=== PATIENT | male | born 1990 | race Caucasian/White ===

== ENCOUNTER 2017-09-21 15:05 | Emergency (ER) | payer MEDICAID ==
[~2017-09-21] VITALS: Ht 177.8 cm; Wt 82.5 kg
[~2017-09-21 15:05] MED LIST: ALBU17AE26 IH; ALBU6.7H INH; ALBU8.5H8 IH; ALBU8HFA PO; AZIT250T PO; BENZ-16 PO; CYCL-1 PO; IBUP-1984 PO; IBUP-1986 PO; LEVA15HF4 IH; MONT10TA21 PO; OMEP-84 PO; ONDA4TAB6 PO; ONDA8TAB9 PO
[2017-09-21 16:12] VITALS: BP 116/69
== END 2017-09-21 15:35 | disposition home or self-care (01) ==
LOC: ER 15:06
DX: M25.561 Pain in right knee (principal); J45.909 Unspecified asthma, uncomplicated; G89.29 Other chronic pain; Z87.442 Personal history of urinary calculi; Z90.49 Acquired absence of other specified parts of digestive tract; Z79.899 Other long term (current) drug therapy; Z88.8 Allergy status to other drugs, medicaments and biological substances; Z56.0 Unemployment, unspecified; Z60.2 Problems related to living alone
CPT/HCPCS: 99282; A6449

== ENCOUNTER 2020-06-05 12:11 | Emergency (ER) | payer MEDICAID ==
[~2020-06-05] VITALS: Ht 177.8 cm; Wt 85.4 kg
[~2020-06-05 12:11] MED LIST changes: -ALBU6.7H INH; +ALBU6.7H9 INH
[2020-06-05 12:15] VITALS: BP 125/78
[2020-06-05] MEDS ORDERED: ALBU8HFA PO (12:29)
--- NOTE | 2020-06-05 12:56 | NUR ---
PT SEEN AND DC'D BY PROVIDER
== END 2020-06-05 12:50 | disposition home or self-care (01) ==
LOC: ER 12:11
DX: J45.909 Unspecified asthma, uncomplicated (principal); G89.29 Other chronic pain; F41.9 Anxiety disorder, unspecified; Z76.0 Encounter for issue of repeat prescription; Z60.2 Problems related to living alone; Z90.49 Acquired absence of other specified parts of digestive tract; Z56.0 Unemployment, unspecified; Z88.8 Allergy status to other drugs, medicaments and biological substances; Z79.899 Other long term (current) drug therapy
CPT/HCPCS: 99281

== ENCOUNTER 2021-08-25 12:10 | Emergency (ER) | payer MEDICAID ==
[~2021-08-25] VITALS: Ht 177.8 cm; Wt 90.9 kg
[~2021-08-25 12:10] MED LIST changes: +ALBU8.5H17 IH; -ALBU8.5H8 IH
[2021-08-25 12:24] VITALS: BP 130/79
[2021-08-25] MEDS ORDERED: ALBU6.7H9 INH (12:52)
== END 2021-08-25 12:59 | disposition home or self-care (01) ==
LOC: ER 12:11
DX: J45.901 Unspecified asthma with (acute) exacerbation (principal); G89.29 Other chronic pain; F41.9 Anxiety disorder, unspecified; Z76.0 Encounter for issue of repeat prescription; Z87.442 Personal history of urinary calculi; Z90.89 Acquired absence of other organs; Z72.89 Other problems related to lifestyle; Z60.2 Problems related to living alone; Z56.0 Unemployment, unspecified; Z88.8 Allergy status to other drugs, medicaments and biological substances; Z79.2 Long term (current) use of antibiotics; Z79.899 Other long term (current) drug therapy
CPT/HCPCS: 99281

== ENCOUNTER 2022-01-23 07:25 | Emergency (ER) | payer MEDICAID ==
[~2022-01-23] VITALS: Ht 177.8 cm; Wt 86.4 kg
[2022-01-23 08:11] VITALS: BP 141/80
--- NOTE | 2022-01-23 08:30 | NUR ---
REPORTED INJURY AND BRUISING BEHIND PTS L EAR TO DR. CRAWFORD, RECEIVED VO FOR HEAD CT.
== END 2022-01-23 11:25 | disposition left against medical advice (07) ==
LOC: ER 07:25
DX: R51.9 Headache, unspecified (principal); Z53.21 Procedure and treatment not carried out due to patient leaving prior to being seen by health care provider
CPT/HCPCS: 70450; 70486

== ENCOUNTER 2022-02-02 06:50 | Emergency (ER) | payer MEDICAID ==
[~2022-02-02] VITALS: Ht 177.8 cm; Wt 88.6 kg
[2022-02-02 06:56] VITALS: BP 135/86
[2022-02-02] MEDS ORDERED: OMEP40CA21 PO (07:19)
[2022-02-02] MEDS ORDERED: SUCR1TAB PO (07:19)
== END 2022-02-02 07:34 | disposition home or self-care (01) ==
LOC: ER 06:50
DX: R10.13 Epigastric pain (principal); R10.12 Left upper quadrant pain; G89.29 Other chronic pain; F41.9 Anxiety disorder, unspecified; J45.909 Unspecified asthma, uncomplicated; Z87.442 Personal history of urinary calculi; Z72.89 Other problems related to lifestyle; Z90.49 Acquired absence of other specified parts of digestive tract; Z60.2 Problems related to living alone; Z56.0 Unemployment, unspecified; Z88.8 Allergy status to other drugs, medicaments and biological substances; Z79.899 Other long term (current) drug therapy
CPT/HCPCS: 99283

== ENCOUNTER 2022-02-05 07:00 | Emergency (ER) | payer MEDICAID ==
[~2022-02-05] VITALS: Ht 177.8 cm; Wt 88.6 kg
[~2022-02-05 07:00] MED LIST changes: +OMEP40CA21 PO; +SUCR1TAB PO
[2022-02-05 07:05] VITALS: BP 132/91
== END 2022-02-05 08:22 | disposition left against medical advice (07) ==
LOC: ER 07:01
DX: R10.9 Unspecified abdominal pain (principal); Z53.21 Procedure and treatment not carried out due to patient leaving prior to being seen by health care provider

== ENCOUNTER 2024-03-09 13:58 | Emergency (ER) | payer MEDICAID ==
[~2024-03-09] VITALS: Ht 175.3 cm; Wt 80.1 kg
[~2024-03-09 13:58] MED LIST changes: +ALBU6.7H14 INH; -ALBU6.7H9 INH; +MONT-47 PO; -MONT10TA21 PO; -OMEP40CA21 PO
[2024-03-09 14:00] VITALS: TEMP 98.4
[2024-03-09 16:15] LABS: LIPASE 30 U/L (16-77)
[2024-03-09 16:45] VITALS: BP 135/75; PULSE 88; RESP 16; O2SAT 98
== END 2024-03-09 17:04 | disposition home or self-care (01) ==
LOC: ER 13:58
DX: R07.89 Other chest pain (principal); J45.909 Unspecified asthma, uncomplicated; G89.29 Other chronic pain; M54.9 Dorsalgia, unspecified; F41.9 Anxiety disorder, unspecified; Z87.442 Personal history of urinary calculi; Z72.89 Other problems related to lifestyle; Z56.0 Unemployment, unspecified; Z88.8 Allergy status to other drugs, medicaments and biological substances; Z79.899 Other long term (current) drug therapy; Z79.2 Long term (current) use of antibiotics; Z79.1 Long term (current) use of non-steroidal anti-inflammatories (NSAID)
CPT/HCPCS: 36415; 71046; 83690; 84484; 93005; 99285

== ENCOUNTER 2025-03-06 14:11 | Emergency (ER) | payer MEDICAID, OTHER ==
[~2025-03-06] VITALS: Ht 180.3 cm; Wt 97.2 kg
[2025-03-06 14:16] VITALS: BP 132/86; PULSE 85; RESP 16; O2SAT 97
[2025-03-06] MEDS ORDERED: CEPH-585 PO (14:59)
[2025-03-06] MEDS: LIDOcaine 1% W/epiNEPHrine 1:100,000 20ml vial SQ ONE (15:05)
--- NOTE | 2025-03-06 16:14 | Physician Documentation ---
History of Present Illness ~ Chief Complaint: Toe pain Stated Complaint: TOE PAIN Time Seen by MD: 14:21 OK to notify your PCP?: Yes Primary Medical Doctor: [facility] Care Source: patient Mode of Arrival: POV Exam Limitations: no limitations HPI 34-year-old male presents for ingrown toenail to left big toe. He states that it is quite painful and it has started draining some blood like substance. He said he has a history of ingrown toenail problems and usually comes here for treatment. Not taken any medication for the pain prior to arrival. Tetanus witin 5 years: Yes Medication Reconciliation Allergies: Coded Allergies: diphenhydramine (Unverified Allergy, Unknown, SYNCOPE, 03/06/25) diphenhydramine HCl (Verified Allergy, Unknown, 03/06/25) Scheduled Albuterol Sulfate (Proventil Hfa), 2 PUFFS INH Q6H Albuterol Sulfate (Proventil Hfa), 2 PUFFS INH Q6H Albuterol* (Proventil*), 2 INH IH Q4H PRN SOB Azithromycin (Zithromax), 1 DOSPAK PO UD Cephalexin*Monohydrate* (Keflex*), 1 CAP PO Q6H Ibuprofen (Ibuprofen), 1 TABLET PO TID Ibuprofen* (Motrin*), 800 MG PO BID Ibuprofen* (Motrin*), 400 MG PO Q6H Ibuprofen* (Motrin*), 800 MG PO TID Levalbuterol Tartrate* (Xopenex Inhaler*), 2 PUFF IH Q4H Montelukast Sodium (Singulair), 1 TABLET PO QHS Omeprazole* (Prilosec*), 40 MG PO DAILY Ondansetron Hcl (Zofran), 1 TAB PO Q6H Scheduled PRN Albuterol Sulfate (Proair Hfa), 2 PUFFS IH Q4H PRN for SOB or wheezing Benzonatate* (Tessalon Perles*), 100 MG PO Q8H PRN for cough Cyclobenzaprine* (Cyclobenzaprine*), 1 TABLET PO Q8H PRN for muscle spasms Ondansetron (Zofran Odt), 8 MG PO TID PRN PRN for nausea/vomiting Ondansetron Hcl (Zofran), 1 TABLET PO Q6H PRN for nausea/vomiting Sucralfate (Sucralfate), 1 GM PO TID PRN for pain albuterol inhaler (Pro-Air Inhaler), 1-2 PUFFS PO Q4H PRN for coug albuterol inhaler (Pro-Air Inhaler), 2-4 PUFFS PO Q4H PRN for SOB or wheezing Past Medical History Past Medical History: Asthma, Kidney Stones, Chronic Back Pain, Anxiety Past Surgical History: appendectomy Alcohol Use: Occasionally Drug Use: none Lives with: Alone Lives In: Home Occupation: unemployed Review of Systems All Other Systems at this time: Reviewed and Negative Physical Exam Vital Signs: RN Vital Signs have been reviewed: Yes, Temperature: 97.7, Source: Temporal, Heart Rate: 85, Respiratory Rate: 16, BP: 132/86, Pulse Oximetry: 97, Weight: 97.150 Oxygen Flow Rate: 0 Pulse Oximetry Reflects: adequate oxygenation Physical Exam General: Alert, no distress. HEENT: No injection, moist mucous membranes. Neck: Full range of motion. Respiratory: No respiratory distress, equal chest rise and fall. Chest: No accessory muscle use. Cardiovascular: Regular rate and rhythm. Gastrointestinal: Nondistended. Extremities: Normal range of motion, no deformity. Medial portion of left greater toe is impacted into the skin with some bloody drainage coming out. Neurologic: Oriented x4. Psychiatric: Normal mood and affect. Skin: Normal color, warm and dry. Procedures Procedures Obtained verbal consent from patient. Performed digit block to left greater toe. Performed onychocryptosis procedure to medial portion of left greater toe nail. Use silver nitrate stick to control bleeding. Patient tolerated procedure well. Used nonadherent for simple bandage. Progress Results/Orders Reviewed/noted all lab results: Yes Results/Orders Orders - ANNMARIE ROBERTS Laceration/I&D Tray Set Up (03/06/25 ) Completed Orders - ANNMARIE ROBERTS Lidocaine 1% W/Epi 1:100,000 (Xylocaine (03/06/25 14:55) Cephalexin Capsule (Keflex Capsule) (03/06/25 14:55) Silver Nitrate Applicator (Silver Nitrat (03/06/25 16:15) Medications Received in ER Medications (Trade) Dose Ordered Sig/Genesis Route PRN Reason Start Time Stop Time Status Last Admin Dose Admin (Keflex capsule) 500 mg ONCE ONCE PO 03/06/25 14:55 03/06/25 14:56 DC 03/06/25 15:05 500 MG Vital Signs 03/06/25 14:16 Temp 97.7 Pulse 85 Resp 16 B/P (MAP) 132/86 Pulse Ox 97 O2 Flow Rate 0 Medical Decision Making Additional info obtained from: old records Findings 34-year-old male presents with an ingrown toenail to the medial portion of left greater toe. He states that he has had issues with this in the past. He states that his father also had issues with this in the past and had to have both greater toe nails removed. Discussed that he needs to follow up with a staff midwife/apprenticeship director for further treatment his primary care provider in the next 3 days. With the help of AUSTYN Izaguirre, we removed the ingrown toenail and I applied silver nitrate stick to control bleeding. Placed him on Keflex as this nail appears infected with the 1st dose given here in the department. Verbalizes understanding of the plan. He can return back here for any new or worsening symptoms. Toe Diff Dx:Considerations: Include: Hematoma, Neurovascular injury, Paronychia Departure Disposition: 01 HOME / SELF CARE / HOMELESS Impression: Primary Impression: Onycholysis Additional Impression: Pain of toe Condition: Stable Discharge Instructions: Ingrown Toenail Additional Instructions: Keep wound clean and dry. Keep the current dressing on for the next 24 hours and then remove it. If you notice any signs of infection such as redness spreading up the leg, fevers, pus-like discharge out of the wound or worsening pain please return immediately as you may need a secondary antibiotic. Please follow up with her primary care provider within the next 3 days and return back here for any new or worsening symptoms. You likely need a referral to a staff midwife/apprenticeship director if this becomes a regular occurrence. Take all antibiotics as prescribed. Referrals: NO PRIMARY CARE PROVIDER (PCP) Prescriptions Cephalexin*Monohydrate* (Keflex*) 500 Mg Capsule 1 CAP PO Q6H for 7 Days, #28 CAP Prov: ANNMARIE ROBERTS TUBE PULLER 03/06/25 Education Educated: Patient Educated regarding: diagnosis, treatment, prognosis, need for follow up Additional Comment Medical Screen Exam This patient recieved a medical screening examination. After reviewing the individual's medical complaints with presenting symptoms and performing an appropriate physical examination, it was determined that no immediate life- threatening emergency medical condition is present. This individual is also not a women having contractions. Signature Scribe Signature: . Attestation: Scribed for Annmarie Roberts by Annmarie Cleveland NP . 03/06/25 17:05 Parts of this note were created using [employer] voice recognition software pro [employer]. While efforts were made to correct any mistakes made by this voice recognition software program, nonsensical phrases may remain in this note. In addition, there may be errors and syntax, grammar, content and spelling. ANNMARIE ROBERTS TUBE PULLER Mar 06, 2025 16:14
[2025-03-06 17:09] VITALS: TEMP 97.7
== END 2025-03-06 17:11 | disposition home or self-care (01) ==
LOC: ER 14:13
DX: L60.1 Onycholysis (principal); L60.0 Ingrowing nail; J45.909 Unspecified asthma, uncomplicated; Z88.8 Allergy status to other drugs, medicaments and biological substances; Z90.49 Acquired absence of other specified parts of digestive tract
CPT/HCPCS: 11730; 99283; 99284; A6258; A6449

== ENCOUNTER 2025-03-28 03:33 | Emergency (ER) | payer MEDICAID ==
[~2025-03-28] VITALS: Ht 180.3 cm; Wt 86.4 kg
[2025-03-28 03:36] VITALS: TEMP 99.2
[2025-03-28 03:54] VITALS: BP 151/84; PULSE 95; RESP 16; O2SAT 98
--- NOTE | 2025-03-28 03:55 | Physician Documentation ---
History of Present Illness ~ General Chief Complaint: See Chief Complaint Stated Complaint: LUMP ON NECK Time Seen by MD: 03:55 [facility] History of Present Illness Initial Comments Patient presents to the emergency room with report of small mass beneath his chin that he had noticed over the past month. 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 No fevers or weight loss. Medication Reconciliation Allergies: Coded Allergies: diphenhydramine (Unverified Allergy, Unknown, SYNCOPE, 03/06/25) diphenhydramine HCl (Verified Allergy, Unknown, 03/06/25) Scheduled Albuterol Sulfate (Proventil Hfa), 2 PUFFS INH Q6H Albuterol Sulfate (Proventil Hfa), 2 PUFFS INH Q6H Albuterol* (Proventil*), 2 INH IH Q4H PRN SOB Azithromycin (Zithromax), 1 DOSPAK PO UD Ibuprofen (Ibuprofen), 1 TABLET PO TID Ibuprofen* (Motrin*), 800 MG PO BID Ibuprofen* (Motrin*), 400 MG PO Q6H Ibuprofen* (Motrin*), 800 MG PO TID Levalbuterol Tartrate* (Xopenex Inhaler*), 2 PUFF IH Q4H Montelukast Sodium (Singulair), 1 TABLET PO QHS Omeprazole* (Prilosec*), 40 MG PO DAILY Ondansetron Hcl (Zofran), 1 TAB PO Q6H Scheduled PRN Albuterol Sulfate (Proair Hfa), 2 PUFFS IH Q4H PRN for SOB or wheezing Benzonatate* (Tessalon Perles*), 100 MG PO Q8H PRN for cough Cyclobenzaprine* (Cyclobenzaprine*), 1 TABLET PO Q8H PRN for muscle spasms Ondansetron (Zofran Odt), 8 MG PO TID PRN PRN for nausea/vomiting Ondansetron Hcl (Zofran), 1 TABLET PO Q6H PRN for nausea/vomiting Sucralfate (Sucralfate), 1 GM PO TID PRN for pain albuterol inhaler (Pro-Air Inhaler), 1-2 PUFFS PO Q4H PRN for coug albuterol inhaler (Pro-Air Inhaler), 2-4 PUFFS PO Q4H PRN for SOB or wheezing Past Medical History Past Medical History: Asthma, Kidney Stones, Chronic Back Pain, Anxiety Past Surgical History: appendectomy Alcohol Use: Occasionally Drug Use: none Lives with: Alone Lives In: Home Occupation: unemployed Review of Systems ROS All review of systems negative except as per HPI Physical Exam Physical Exam Vital Signs: Temperature: 99.2, Source: Oral, Heart Rate: 98, Respiratory Rate: 16, BP: 150/75, Pulse Oximetry: 96, Weight: 86.360 Oxygen Flow Rate: 0 Physical Exam General: Patient is awake, alert, oriented x4 in no acute distress Head: Normocephalic and atraumatic. Eyes: Conjunctival normal. EOMI. PERRL. ENT: Mucous membranes moist. No appreciable mass Neck: Supple, trachea is midline. Chest: Clear to auscultation bilaterally without rales, rhonchi, or wheezes. There is no accessory muscle use or retractions. Cardiac: RRR without murmurs, gallops, or rubs. Progress Results/Orders Results/Orders Vital Signs 03/28/25 03/28/25 03:36 03:54 Temp 99.2 Pulse 98 95 Resp 16 16 B/P (MAP) 150/75 151/84 (106) Pulse Ox 96 98 O2 Flow Rate 0 Medical Decision Making Findings Patient presents to the emergency room with report of a small mass beneath his chin. Differentials include but are not limited to lymphadenopathy, foreign body, epidermal inclusion cyst, abscess. I do not appreciate any mass on physical exam. Possible lymph node that I just not appreciate. We will give patient antibiotic with instructions to follow up with his doctor that has any mass can represent cancer. Departure Disposition: HOME / SELF CARE / HOMELESS Impression: Primary Impression: Lymphadenopathy Condition: Stable Discharge Instructions: General Discharge Instructions Additional Instructions: We will empirically treat you with an antibiotic in case this is a lymph node reacting to some infection. If symptoms fail to resolve follow up with your doctor as you may need biopsy versus other. Referrals: NO PRIMARY CARE PROVIDER (PCP) Prescriptions Sulfamethoxazole/Trimethoprim (Bactrim Ds Tablet) 800 Mg-160 Mg Tablet 1 TAB PO Q12H for 10 Days, #20 TAB Prov: AARON LONGO MD 03/28/25 Signature Scribe Signature: No scribe Attestation: The note accurately reflects work and decisions made by me.Aaron Longo MD 03/28/25 04:04 AARON LONGO MD Mar 28, 2025 03:55
[2025-03-28] MEDS ORDERED: SULF1TAB49 PO (04:04)
== END 2025-03-28 04:15 | disposition home or self-care (01) ==
LOC: ER 03:34
DX: R59.1 Generalized enlarged lymph nodes (principal); J45.909 Unspecified asthma, uncomplicated; F41.9 Anxiety disorder, unspecified; Z90.49 Acquired absence of other specified parts of digestive tract; Z88.8 Allergy status to other drugs, medicaments and biological substances; Z79.899 Other long term (current) drug therapy; Z56.0 Unemployment, unspecified; Z72.89 Other problems related to lifestyle; Z60.2 Problems related to living alone; Z87.442 Personal history of urinary calculi
CPT/HCPCS: 99283